=== PATIENT | male | born 2000 | race Caucasian/White ===

== ENCOUNTER 2020-02-05 10:22 | Emergency (ER) | payer OTHER, MEDICAID, SELFPAY ==
[2020-02-05 10:38] VITALS: BP 145/88; PULSE 90; RESP 13; TEMP 35.8; O2SAT 96
--- NOTE | 2020-02-05 10:43 | DI.RAD.S_ITS ---
PROCEDURE: XR SHOULDER LT MIN 2V INDICATIONS: injury/pain TECHNIQUE: 3 views of the shoulder were acquired. COMPARISON: None. FINDINGS: Bones: No fractures or dislocations. No suspicious bony lesions. Visualized ribs appear intact. Soft tissues: No suspicious soft tissue calcifications. IMPRESSION: No acute radiographic findings. If pain persists, followup imaging in 5-7 days is recommended to exclude occult fracture. Dictated by: Mary White M.D. on 02/05/2020 at 10:08 Approved by: Mary White M.D. on 02/05/2020 at 10:08
--- NOTE | 2020-02-05 11:27 | ED.UPPEXIN ---
HPI - Extremity Injury (Upper) <HENRY Azar - Last Filed: 02/05/20 13:21> General Chief Complaint: Extremity Injury, Upper Stated Complaint: lt shoulder pain Time Seen by Provider: 02/05/20 11:13 Source: patient Mode of arrival: Ambulatory Limitations: no limitations History of Present Illness HPI narrative: The patient is a 19-year-old male current smoker who denies pertinent medical history who presents with a chief complaint of left shoulder pain. He was lifting a car part on Friday and then sudden had 1st bilateral shoulder pain. He states that his left shoulder is much worse than his right shoulder and he cannot move it. He has not taken anything at home for the pain. He has not applied ice. Denies any previous injuries to his left shoulder. He is left-hand dominant. He states he has decreased range of motion. Related Data Previous Rx's Medication Instructions Recorded cyclobenzaprine 10 mg PO TID PRN #20 tab 02/05/20 ketorolac 10 mg PO TID PRN #14 tab 02/05/20 Review of Systems <HENRY Azar - Last Filed: 02/05/20 13:21> Review of Systems Narrative: GENERAL: Denies chills, fatigue, malaise, fever, sweats. HEENT: Denies sinus pain, ear pain, sore throat, difficulty swallowing, dizziness. RESPIRATORY: Denies dyspnea, cough, wheezing, hemoptysis, sputum. CARDIOVASCULAR: Denies chest pain, palpitations, orthopnea, edema, GASTROINTESTINAL: Denies nausea, vomiting, abdominal pain, diarrhea, constipation, melena. : Denies dysuria, frequency, incontinence, hematuria, urinary retention. MUSCULOSKELETAL: See HPI SKIN: Denies rash, skin lesions, or other NEUROLOGIC: Denies weakness, headache, numbness, change in speech, confusion, seizures, incoordination. PSYCHIATRIC: No concerning psychosocial issues. 12 point review of systems is negative except for those stated above Patient History <HENRY Azar - Last Filed: 02/05/20 13:21> Surgical History (Updated 02/05/20 @ 11:28 by HENRY Azar) History of tonsillectomy (Acute) Social History Smoking Status: Current every day smoker Smoking Status: Current every day smoker Substance Use Type: does not use Exam <HENRY Azar - Last Filed: 02/05/20 13:21> Narrative Exam Narrative: GENERAL: Morbidly obese female lying on stretcher no acute distress HEAD: Atraumatic. Normocephalic. No temporal or scalp tenderness. EYES: Pupils equal round and reactive. Extraocular motions intact. No scleral icterus. No injection or drainage. ENT: Nose without bleeding, purulent drainage or septal hematoma. Throat without erythema, tonsillar hypertrophy or exudate. Uvula midline. Airway patent. NECK: Trachea midline. No JVD or lymphadenopathy. Supple, nontender, no meningeal signs. CARDIOVASCULAR: Regular rate and rhythm RESPIRATORY: No cough. No increased respiratory effort. No accessory muscle use. EXTREMITIES: General pain to palpation anterior aspect of left shoulder. Able to flex and extend shoulder to 90? only. Negative empty can test. Positive peripheral pulses bilateral upper extremities. Good strength left hand. BACK: Nontender without deformity or crepitance. No flank tenderness. NEURO: AOx3. SKIN: No rash or erythema on visible skin. Overlying ecchymosis or erythema left shoulder. Initial Vital Signs Initial Vital Signs: Vital Signs Temperature 96.5 F L 02/05/20 10:38 Pulse Rate 90 02/05/20 10:38 Respiratory Rate 13 02/05/20 10:38 Blood Pressure 145/88 H 02/05/20 10:38 Pulse Oximetry 96 02/05/20 10:38 <Vika De Leon MD - Last Filed: 02/05/20 13:41> Initial Vital Signs Initial Vital Signs: Vital Signs Temperature 96.5 F L 02/05/20 10:38 Pulse Rate 90 02/05/20 10:38 Respiratory Rate 13 02/05/20 10:38 Blood Pressure 145/88 H 02/05/20 10:38 Pulse Oximetry 96 02/05/20 10:38 Course <HENRY Azar - Last Filed: 02/05/20 13:21> Orders Ordered: ED Orders 02/05/20 10:43 XR shoulder LT min 2V Stat Discontinued Medications Cyclobenzaprine HCl (Flexeril) 10 mg PO NOW ONE Stop: 02/05/20 11:23 Last Admin: 02/05/20 11:44 Dose: 10 mg Documented by: [place] Ketorolac Tromethamine (Toradol) 60 mg IM NOW ONE Stop: 02/05/20 11:23 Last Admin: 02/05/20 11:44 Dose: 60 mg Documented by: [place] Vital Signs Vital signs: Vital Signs - 8 hr 02/05/20 10:38 02/05/20 12:24 Temperature 96.5 F L Pulse Rate 90 87 Respiratory Rate 13 16 Blood Pressure 145/88 H 142/80 H Pulse Oximetry 96 100 <Vika De Leon MD - Last Filed: 02/05/20 13:41> Orders Ordered: ED Orders 02/05/20 10:43 XR shoulder LT min 2V Stat Discontinued Medications Cyclobenzaprine HCl (Flexeril) 10 mg PO NOW ONE Stop: 02/05/20 11:23 Last Admin: 02/05/20 11:44 Dose: 10 mg Documented by: [place] Ketorolac Tromethamine (Toradol) 60 mg IM NOW ONE Stop: 02/05/20 11:23 Last Admin: 02/05/20 11:44 Dose: 60 mg Documented by: [place] Vital Signs Vital signs: Vital Signs - 8 hr 02/05/20 10:38 02/05/20 12:24 Temperature 96.5 F L Pulse Rate 90 87 Respiratory Rate 13 16 Blood Pressure 145/88 H 142/80 H Pulse Oximetry 96 100 MDM - Extremity Injury (Upper) <JANEY Azar-CHRISTOPHER - Last Filed: 02/05/20 13:21> Imaging Data Extremity x-ray #1: Radiologist's Impression: [address] [place] [address] XRay Report Signed Patient: Jeffy Doyle JR. [facility]#: [id number] : 2000Acct:[id number] Age/Sex: MDate of Service: 02/05/20 Loc: ED Accession Number: [id number] Procedure: XR shoulder LT min 2V Ordering Provider: Vika De Leon MD PROCEDURE: XR SHOULDER LT MIN 2V INDICATIONS: injury/pain TECHNIQUE: 3 views of the shoulder were acquired. COMPARISON: None. FINDINGS: Bones: No fractures or dislocations. No suspicious bony lesions. Visualized ribs appear intact. Soft tissues: No suspicious soft tissue calcifications. IMPRESSION: No acute radiographic findings. If pain persists, followup imaging in 5-7 days is recommended to exclude occult fracture. Dictated by: Mary White M.D. on 02/05/2020 at 10:08 Approved by: Mary White M.D. on 02/05/2020 at 10:08 [facility] Narrative Medical decision making narrative: The patient is a 19-year-old male who presents with a chief complaint of acute shoulder pain after lifting heavy objects several days ago. He has a negative x-ray, neurovascularly intact throughout his stay in the emergency department. He feels much better after the above-stated therapies. I did give her prescriptions of Toradol and Flexeril, discussions to not combine the Toradol with any other anti-inflammatories that Flexeril can be sedating. Encouraged follow-up with primary care provider next few days a come back to the emergency department for any acute concerns. Patient has no questions or concerns upon discharge states understanding return precautions as well as follow-up care. Discharge Plan Departure Patient Disposition: Home Clinical Impression: Acute shoulder pain Qualifiers: Laterality: left Qualified Code(s): M25.512 - Pain in left shoulder Discharge Date/Time: 02/05/20 12:25 Instructions: How To Perform RICE (Rest, Ice, Compress, Elevate), DI for Shoulder Pain Activity Restrictions/Additional Instructions: As I discussed, your x-ray shows no acute fracture. This does not rule out a soft tissue injury such as a ligament or tendon injury. It is important that you follow up with primary care provider, especially if worsening or no improvement. There can be fractures that did not show up on initial x-ray. I have given you a prescription of Toradol. This is an NSAID. Do not combine it with other NSAIDs such as Aleve or ibuprofen. I suggest taking it with some food, as it can irritate your stomach. I sent these 2 prescriptions to [facility] in [facility] Please follow-up with primary care provider when you get back home. I have given you contact information [facility] human resources talent manager in case that you stay in [facility] longer than anticipated and they can help you follow-up with primary care provider Please come back to emergency department for any acute concerns Prescriptions: New cyclobenzaprine 10 mg tablet 10 mg PO TID PRN (Reason: muscle spasm) Qty: 20 RF: 0 ketorolac 10 mg tablet 10 mg PO TID PRN (Reason: pain) Qty: 14 RF: 0 Referrals: [facility] [Outside]
[2020-02-05] MEDS: KETOROLAC 60 MG/2 ML VIAL IM (11:44)
[2020-02-05] MEDS: CYCLOBENZAPRINE 10 MG TABLET PO (11:44)
--- NOTE | 2020-02-05 11:48 | PC.NURSE ---
concerned about strain or injury to left shoulder after attempting to lift a transmission into car. . Limited ROM due to pain. No obvious deformity noted
[2020-02-05 12:24] VITALS: BP 142/80; PULSE 87; RESP 16; O2SAT 100
== END 2020-02-05 12:25 | disposition home or self-care (01) ==
PROVIDERS: Emergency Provider Nurse Practitioner Family
DX: M25.512 Pain in left shoulder (principal); X50.0XXA Overexertion from strenuous movement or load, initial encounter
CPT/HCPCS: 73030; 96372; 99283; 99284; J1885